=== PATIENT | female | born 1950 | race Native Hawaiian/Other Pacific Islander ===

== ENCOUNTER 2017-05-09 14:13 | Outpatient (CLI) | payer OTHER, BC ==
[~2017-05-09 14:13] MED LIST: ACET7.5T70 PO; ADIPEX PO; HYDR25TA60 PO; MEDROL DOSEPAK4 MG OR
[2017-05-09 14:37] LABS: PLATELET COUNT 227 K/uL (152-353)
[2017-05-09 14:59] LABS: SODIUM 140 mmol/L (136-145)
== END 2017-05-09 15:30 | disposition home or self-care (01) ==
LOC: LAB 14:13
PROVIDERS: Nurse Practitioner Family
DX: Z00.00 Encounter for general adult medical examination without abnormal findings (principal); E66.8 Other obesity; E78.2 Mixed hyperlipidemia; E55.9 Vitamin D deficiency, unspecified; F41.8 Other specified anxiety disorders; Z79.899 Other long term (current) drug therapy; Z51.81 Encounter for therapeutic drug level monitoring
CPT/HCPCS: 80053; 80061; 82306; 82607; 83036; 84436; 84443; 85027

== ENCOUNTER 2018-01-01 12:20 | Outpatient (CLI) | payer OTHER, BC ==
[2018-01-01 12:36] LABS: PLATELET COUNT 228 K/uL (152-353)
[2018-01-01 13:00] LABS: POTASSIUM 3.9 mmol/L (3.6-5.2)
== END 2018-01-02 04:42 | disposition home or self-care (01) ==
LOC: LAB 12:20
PROVIDERS: Nurse Practitioner Family
DX: F41.8 Other specified anxiety disorders (principal); E78.2 Mixed hyperlipidemia; Z79.899 Other long term (current) drug therapy; Z51.81 Encounter for therapeutic drug level monitoring; E66.8 Other obesity
CPT/HCPCS: 80053; 80061; 83036; 84436; 84443; 85027

== ENCOUNTER 2018-06-20 08:33 | Outpatient (CLI) | payer OTHER, BC ==
[2018-06-20] MEDS ORDERED: DULERA1 AE1 IN (09:08)
[2018-06-20] MEDS ORDERED: EZET10TA13 PO (09:09)
[2018-06-20] MEDS ORDERED: ALPR0.2566 PO (09:16)
== END 2018-06-20 08:43 | disposition short-term general hospital (02) ==
LOC: AMB 08:33
DX: R41.0 Disorientation, unspecified (principal)
CPT/HCPCS: A0425; A0427

== ENCOUNTER 2018-06-20 08:44 | Emergency (ER) | payer OTHER, BC ==
[~2018-06-20] VITALS: Ht 157.5 cm; Wt 88.0 kg
[2018-06-20 08:50] VITALS: TEMP 98
[2018-06-20] MEDS ORDERED: DULERA1 AE1 IN (09:08)
[2018-06-20] MEDS ORDERED: EZET10TA13 PO (09:09)
[2018-06-20] MEDS ORDERED: ALPR0.2566 PO (09:16)
[2018-06-20 09:23] LABS: PLATELET COUNT 228 K/uL (152-353)
[2018-06-20 09:33] LABS: POTASSIUM 3.4 mmol/L (3.6-5.2)
[2018-06-20 10:16] LABS: PARTIAL THROMBOPLASTIN TIME 27.5 SECONDS (24.5-33.6)
[2018-06-20 16:05] VITALS: BP 153/77
== END 2018-06-20 16:05 | disposition short-term general hospital (02) ==
LOC: ED 08:44
PROVIDERS: Emergency Medicine
DX: G45.4 Transient global amnesia (principal); Z79.899 Other long term (current) drug therapy
CPT/HCPCS: 80053; 80307; 81000; 84484; 85027; 85610; 85730; 93005; 99284

== ENCOUNTER 2018-06-20 16:07 | Outpatient (CLI) | payer OTHER, BC ==
[~2018-06-20 16:07] MED LIST changes: +ALPR0.2566 PO; +DULERA1 AE1 IN; +EZET10TA13 PO
== END 2018-06-20 17:43 | disposition short-term general hospital (02) ==
LOC: AMB 16:07
DX: G45.4 Transient global amnesia (principal); Z79.899 Other long term (current) drug therapy
CPT/HCPCS: A0425; A0427

== ENCOUNTER 2018-07-16 15:29 | Outpatient (CLI) | payer OTHER, BC ==
[2018-07-16 15:56] LABS: PLATELET COUNT 207 K/uL (152-353)
[2018-07-16 16:01] LABS: POTASSIUM 4.5 mmol/L (3.6-5.2)
== END 2018-07-16 23:59 | disposition home or self-care (01) ==
LOC: LAB 15:29
PROVIDERS: Nurse Practitioner Family
DX: F41.9 Anxiety disorder, unspecified (principal); E78.2 Mixed hyperlipidemia; Z00.00 Encounter for general adult medical examination without abnormal findings; Z79.899 Other long term (current) drug therapy
CPT/HCPCS: 80053; 80061; 83036; 84436; 84443; 85027

== ENCOUNTER 2021-02-22 11:15 | Outpatient (CLI) | payer OTHER, BC | END 2021-02-22 22:02 | disposition home or self-care (01) | LOC: INF 11:15 | PROVIDERS: ATTEND Internal Medicine | DX: Z23 Encounter for immunization (principal) | CPT/HCPCS: 96372 ==

== ENCOUNTER 2021-03-16 11:23 | Outpatient (CLI) | payer OTHER, BC | END 2021-03-16 21:20 | disposition home or self-care (01) | LOC: INF 11:23 | PROVIDERS: ATTEND Internal Medicine | DX: Z23 Encounter for immunization (principal) | CPT/HCPCS: 96372 ==